=== PATIENT | female | born 2000 | race Two or more races ===

== ENCOUNTER 2022-08-07 11:34 | Outpatient (CLI) | payer OTHER | END 2022-08-07 11:36 | disposition home or self-care (01) | LOC: SONOGRAMA 11:34 | PROVIDERS: ATTEND Pathology Anatomic Pathology & Clinical Pathology | DX: E04.1 Nontoxic single thyroid nodule (principal); D34 Benign neoplasm of thyroid gland ==

== ENCOUNTER 2023-12-17 12:46 | Outpatient (CLI) | payer OTHER | END 2023-12-17 12:48 | disposition home or self-care (01) | LOC: SONOGRAMA 12:46 | PROVIDERS: ATTEND Pathology Anatomic Pathology & Clinical Pathology | DX: D34 Benign neoplasm of thyroid gland (principal); E04.9 Nontoxic goiter, unspecified ==